=== PATIENT | female | born 1960 | race Caucasian/White ===

== ENCOUNTER → 2016-05-17 | Outpatient (CLI) | payer BC ==
--- NOTE | 2016-05-18 13:37 | MM ---
Reason for exam: screening (asymptomatic). Last mammogram was performed 1 year and 1 month ago. History: Family history of breast cancer in maternal aunt at age 50. Benign left US cyst aspiration of the left breast, February 07, 2007. Cancelled Left US Needle Biopsy of the left breast, July 11, 2006. Physical Findings: A clinical breast exam by your physician is recommended on an annual basis and results should be correlated with mammographic findings. MG Screening Mammo w CAD Bilateral CC and MLO view(s) were taken. Prior study comparison: April 15, 2015, bilateral MG screening mammo w CAD. March 22, 2014, bilateral MG screening mammo w CAD. The breast tissue is extremely dense which could obscure a lesion on mammography. No significant changes when compared with prior studies. ASSESSMENT: Benign, BI-RAD 2 RECOMMENDATION: Routine screening mammogram of both breasts in 1 year.
== END | disposition home or self-care (01) ==
LOC: RADMAMWWP 07:36
PROVIDERS: ATTEND Obstetrics & Gynecology
DX: Z12.31 Encounter for screening mammogram for malignant neoplasm of breast (principal)

== ENCOUNTER → 2017-05-26 | Outpatient (CLI) | payer OTHER ==
--- NOTE | 2017-05-27 11:35 | MM ---
Reason for exam: screening (asymptomatic). Last mammogram was performed 1 year ago. History: Family history of breast cancer in maternal aunt at age 50. Benign left US cyst aspiration of the left breast, February 07, 2007. Cancelled Left US Needle Biopsy of the left breast, July 11, 2006. Physical Findings: A clinical breast exam by your physician is recommended on an annual basis and results should be correlated with mammographic findings. MG Screening Mammo w CAD Bilateral CC and MLO view(s) were taken. Prior study comparison: May 17, 2016, bilateral MG screening mammo w CAD. April 15, 2015, bilateral MG screening mammo w CAD. The breast tissue is extremely dense which could obscure a lesion on mammography. There is chronic nodularity bilaterally. There is no dominant lesion. No significant changes when compared with prior studies. ASSESSMENT: Negative, BI-RAD 1 RECOMMENDATION: Routine screening mammogram of both breasts in 1 year.
== END | disposition home or self-care (01) ==
LOC: RADMAMWWP 08:16
PROVIDERS: ATTEND Obstetrics & Gynecology
DX: Z12.31 Encounter for screening mammogram for malignant neoplasm of breast (principal)
CPT/HCPCS: 77067

== ENCOUNTER → 2018-05-23 | Outpatient (CLI) | payer BC ==
--- NOTE | 2018-05-23 10:15 | BD ---
EXAMINATION TYPE: Axial Bone Density DATE OF EXAM: 05/23/2018 COMPARISON: NONE CLINICAL HISTORY: post menopausal female. Osteoporosis screening. Height: 5'8 1/2 Weight: 155 FRAX RISK QUESTIONS: Secondary Osteoporosis: RISK FACTORS HISTORY OF: Family History of Osteoporosis: y If Premenopausal, do you have irregular periods: y MEDICATIONS: Thyroid Medications: Which medication: Synthroid How Lon years Additional Medications: Additional History: EXAM MEASUREMENTS: Bone mineral densitometry was performed using the Tube2Tone System. Bone mineral density as measured about the Lumbar spine is: ----- L1-L4(G/cm2): 1.354 T Score Values are as follows: ----- L2: 0.7 ----- L3: 1.9 ----- L4: 2.8 ----- L1-L4: 1.4 Bone mineral density about the R hip (g/cm2): 1.020 Bone mineral density about the L hip (g/cm2): 1.019 T Score values are as follows: -----R Neck: -0.1 -----L Neck: -0.1 -----R Total: 0.9 -----L Total: 0.8 IMPRESSION: Normal (Values between +1 and -1 indicate normal bone mass). Consider repeating this study in 5 year s or sooner if there is some new clinical indication. NOTE: T-SCORE=SD OF THE YOUNG ADULT MEAN.
--- NOTE | 2018-05-24 11:51 | MM ---
Reason for exam: screening (asymptomatic). Last mammogram was performed 1 year ago. History: Family history of breast cancer in maternal aunt at age 50. Benign left US cyst aspiration of the left breast, February 07, 2007. Cancelled Left US Needle Biopsy of the left breast, July 11, 2006. Physical Findings: A clinical breast exam by your physician is recommended on an annual basis and results should be correlated with mammographic findings. MG Screening Mammo w CAD Bilateral CC and MLO view(s) were taken. Prior study comparison: May 26, 2017, bilateral MG screening mammo w CAD. May 17, 2016, bilateral MG screening mammo w CAD. The breast tissue is extremely dense which could obscure a lesion on mammography. There is no discrete abnormality. ASSESSMENT: Negative, BI-RAD 1 RECOMMENDATION: Routine screening mammogram of both breasts in 1 year.
== END | disposition home or self-care (01) ==
LOC: RADMAMWWP 07:02
PROVIDERS: ATTEND Obstetrics & Gynecology
DX: Z12.31 Encounter for screening mammogram for malignant neoplasm of breast (principal); Z13.820 Encounter for screening for osteoporosis; N95.1 Menopausal and female climacteric states
CPT/HCPCS: 77067; 77080

== ENCOUNTER → 2018-07-24 | Outpatient (CLI) | payer BC ==
--- NOTE | 2018-07-24 09:49 | MR ---
EXAMINATION TYPE: MR knee LT wo con DATE OF EXAM: 07/24/2018 COMPARISON: Outside radiographs dated 07/18/2018 HISTORY: Left knee pain TECHNIQUE: Multiplanar, multisequence imaging of the left knee is performed without IV contrast. FINDINGS: MEDIAL MENISCUS: The medial meniscus appears unremarkable in signal and morphology. Meniscal root mirella ears intact. LATERAL MENISCUS: There is abnormal signal and morphology of the anterior horn of the medial meniscus at the insertion of the transverse ligament. Posterior horn and meniscal body appear intact. CRUCIATE LIGAMENTS: The anterior and posterior cruciate ligaments are intact however there is diffuse increased signal of the anterior cruciate ligament relating to a mid grade sprain. COLLATERAL LIGAMENTS: The medial collateral ligament and lateral collateral ligament complex are inta ct EXTENSOR MECHANISM: Visualized quadriceps and patellar tendons are intact. There is some increased si gnal in the insertional fibers of the quadriceps tendon. EFFUSION: No significant suprapatellar joint effusion. POPLITEAL CYST: No sizable popliteal cyst. TRICOMPARTMENT SPACES: There are small tricompartmental marginal osteophytes present. Mild patellofem oral compartment joint space narrowing is seen. CARTILAGE: There is partial thickness cartilaginous defect of the lateral femoral condyle just superi or to the abnormal anterior meniscal signal. This defect measures only 4 mm. Slight chondral thinning of the medial compartment with heterogeneity is seen without focal defect. Within the patellofemoral compartment there is apical cartilaginous thinning and partial-thickness cartilaginous loss of the m edial facet measuring 1.1 cm. Trochlear cartilage is also slightly heterogeneous. BONE MARROW SIGNAL: No focal abnormal marrow signal is appreciated. OTHER: Minimal prepatellar and infrapatellar subcutaneous edema. IMPRESSION: 1. Abnormal signal of the anterior horn of the lateral meniscus at the insertion of the transverse li gament contiguous with the cranial articular surface concerning for a small oblique tear. Additionall y superficial to this there is a partial thickness cartilaginous defect of the lateral femoral condyl e measures 4 mm. 2. Diffuse increased signal of the anterior cruciate ligament without tear relating to mid grade spra in. 3. Increased signal within the insertional fibers of the quadriceps tendon relating to mild tendinosi s. 4. [id number] tricompartmental arthrosis and chondrosis with additional high-grade partial thic kness cartilaginous loss of nearly the entirety of the medial patellar facet.
== END | disposition home or self-care (01) ==
LOC: RADMRIMAIN 07:37
PROVIDERS: ATTEND Orthopaedic Surgery
DX: M17.12 Unilateral primary osteoarthritis, left knee (principal); M94.8X8 Other specified disorders of cartilage, other site; R93.6 Abnormal findings on diagnostic imaging of limbs

== ENCOUNTER → 2018-12-12 | Outpatient (CLI) | payer BC ==
[2018-12-12 08:40] LABS: Basophils % (A) 0 %; Eosinophils # (A) 0.2 k/uL (0-0.7); Eosinophils % (A) 4 %; HCT 42.2 % (34.0-46.0); HGB 13.9 gm/dL (11.4-16.0); Lymphocytes # (A) 1.2 k/uL (1.0-4.8); Lymphocytes % (A) 24 %; MCH 33.9 pg (25.0-35.0); MCHC 32.9 g/dL (31.0-37.0); MCV 103.2 fL (80.0-100.0); Macrocytosis Slight; Mean Platelet Volume 6.2; Monocytes # (A) 0.4 k/uL (0-1.0); Monocytes % (A) 9 %; Neutrophils # (A) 2.9 k/uL (1.3-7.7); Neutrophils % (A) 60 %; Platelet Count 224 k/uL (150-450); RBC 4.09 m/uL (3.80-5.40); RDW 11.8 % (11.5-15.5); WBC 4.8 k/uL (3.8-10.6)
[2018-12-12 09:09] LABS: Potassium 4.2 mmol/L (3.5-5.1)
== END | disposition home or self-care (01) ==
LOC: LABPAT 07:17
PROVIDERS: ATTEND Orthopaedic Surgery
DX: Z01.812 Encounter for preprocedural laboratory examination (principal); Z01.818 Encounter for other preprocedural examination; M23.92 Unspecified internal derangement of left knee
CPT/HCPCS: 36415; 80051; 85025; 93005

== ENCOUNTER → 2018-12-20 | Day surgery (SDC) | payer BC ==
[2018-12-18 11:32] VITALS: BMI 23.6
--- NOTE | 2018-12-19 13:49 | HP ---
HISTORY AND PHYSICAL DATE OF SURGERY: 12/20/2018 Zayra Saunders is a 58-year-old patient seen with progressive left knee pain. We discussed options for treatment, she elected to proceed with left knee arthroscopy. Consent was obtained. PAST MEDICAL HISTORY: Hypothyroidism. PAST SURGICAL HISTORY: Tubal ligation. DAILY MEDICATIONS: Synthroid. ALLERGIES: AMOXICILLIN. SOCIAL HISTORY: She denies current tobacco use. PHYSICAL EVALUATION OF THE LEFT KNEE: Range of motion is -2 to 130 degrees. Tenderness along the medial lateral joint lines. Positive lateral Malini's. Ligaments stable. Hip rotation without pain. Distal neurovascular exam is intact. LEFT KNEE RADIOGRAPHS: Revealed moderate osteoarthritic changes. Left knee MRI revealed lateral meniscal tear. IMPRESSION: 1. Internal derangement left knee with lateral meniscal tear. 2. Hypothyroidism. PLAN: Left knee arthroscopy with partial meniscectomy and debridement. MMODL / IJN: [id number] /
[~2018-12-20] MED LIST: BUPIVACAINE (PF) 0.25% 30 ML VIAL INTRAARTIC ONE; DEXAMETHASONE SOD PHOSPHATE 10 MG/ML 1 ML VIAL IV ONE; HYDROmorphone 0.5 MG/0.5 ML SYRINGE IVP PRN; LACTATED RINGERS 1,000 ML IV SCH; LIDOCAINE 1% 20 ML VIAL (10MG/ML) FOR IV START INTRADERMA PRN; MIDAZOLAM 2 MG/2 ML VIAL IV PRN; ONDANSETRON 4 MG/2 ML VIAL IVP ONE; SCOPOLAMINE 1.5MG/72HR PATCH TRANSDERM ONE
--- NOTE | 2018-12-20 11:48 | P.OP ---
Date of Procedure: 12/20/18 Preoperative Diagnosis: Internal derangement left knee Postoperative Diagnosis: 1. Tear medial meniscus left knee 2. Grade 2/3 chondromalacia medial femoral condyle left knee 3. Grade 3 chondromalacia patella left knee 4. Reactive synovitis medial, lateral and suprapatellar compartments left knee Procedure(s) Performed: 1. Arthroscopic partial medial meniscectomy left knee 2. Arthroscopic chondroplasty medial femoral condyle left knee 3. Arthroscopic chondroplasty patella left knee 4. Arthroscopic partial synovectomy medial, lateral and suprapatellar compartments left knee Anesthesia: ROCCOA, local Surgeon: Brayan Alvares Estimated Blood Loss (ml): 5 Pathology: none sent Condition: stable Disposition: PACU Indications for Procedure: 58-year-old patient seen with progressive left knee pain. After treatment options were discussed, she elected to proceed with arthroscopy. Operative Findings: See description of procedure Description of Procedure: Patient was taken to the operative suite. Patient underwent a general anesthetic by the department of anesthesia. Patient was given preoperative antibiotics. The left lower extremity was placed in a well-padded arthroscopic leg cavazos. The left leg was prepped and draped in the normal sterile orthopedic fashion. A lateral parapatellar incision was made. Trochar was inserted. Arthroscopy was initiated. Suprapatellar pouch revealed diffuse thick reactive synovitis. The patellofemoral joint appeared to articulate congruently. There was grade 3 chondromalacia of the patella with some osteochondral tears present. The scope was guided into the medial gutter. No loose bodies or plica were identified. The scope was then guided into the medial compartment. A medial parapatellar incision was made. Trocar inserted followed by probe. There was a small radial tear posterior medial meniscus. There was area of grade 2/3 chondromalacia medial femoral condyle with some osteochondral tears present. There was thick reactive synovitis anteriorly. I performed a partial medial meniscectomy down to stable tissue. I performed a chondroplasty of the medial femoral condyle down to stable tissue. I performed a partial synovectomy decompressing the thick reactive synovitis. The residual meniscus was probed and found to be stable. The residual osteochondral surface was stable. There was good decompression of the synovitis. Scope and probe were then guided into the intercondylar notch. Cruciates were identified, probed and found to be stable. The scope and probe were then guided into lateral compartment. The lateral meniscus was probed and found to be stable. There was some reactive synovitis anteriorly. There was no chondromalacia present. I introduced a motorized shaver and performed a partial synovectomy decompressing reactive synovitis. The shaver was removed. There was good decompression of the synovitis. The scope was in guided back into the suprapatellar compartment. I introduced a motorized shaver into the super compartment. I debrided some piecemeal fragments of meniscus I encountered. I performed a chondroplasty of the patella followed by partial synovectomy decompressing reactive synovitis. The shaver was removed. His good decompression of the synovitis. I took one more look on the entire knee, no residual debris. Instruments were now removed from the joint. The joint was infiltrated with .25% Marcaine. Steri-Strips were applied to the portal sites. Sterile dressings were applied. The patient was placed into a TIN hose. No tourniquet was utilized. The patient was awakened, transferred to a bed and taken to recovery stable satisfactory condition.
[2018-12-20 11:55] VITALS: TEMP 97
[2018-12-20 12:23] VITALS: RESP 18
[2018-12-20 12:51] VITALS: BP 113/73; PULSE 62
== END | disposition home or self-care (01) ==
LOC: OR 09:50
PROVIDERS: ATTEND Orthopaedic Surgery
DX: S83.242A Other tear of medial meniscus, current injury, left knee, initial encounter (principal); M65.862 Other synovitis and tenosynovitis, left lower leg; M22.42 Chondromalacia patellae, left knee; E03.9 Hypothyroidism, unspecified; Z88.0 Allergy status to penicillin; Z79.890 Hormone replacement therapy; Z98.51 Tubal ligation status; X58.XXXA Exposure to other specified factors, initial encounter
CPT/HCPCS: 81025; 29881; 29876; J1100; J2405; J0690

== ENCOUNTER → 2019-09-20 | Outpatient (CLI) | payer BC ==
--- NOTE | 2019-09-21 09:54 | MM ---
Reason for exam: screening (asymptomatic). Last mammogram was performed 1 year and 4 months ago. History: Family history of breast cancer in maternal aunt at age 50. Benign left US cyst aspiration of the left breast, February 07, 2007. Cancelled Left US Needle Biopsy of the left breast, July 11, 2006. Physical Findings: A clinical breast exam by your physician is recommended on an annual basis and results should be correlated with mammographic findings. MG Screening Mammo w CAD Bilateral CC and MLO view(s) were taken. Prior study comparison: May 23, 2018, bilateral MG screening mammo w CAD. May 26, 2017, bilateral MG screening mammo w CAD. The breast tissue is heterogeneously dense. This may lower the sensitivity of mammography. There is no discrete abnormality. No significant changes when compared with prior studies. ASSESSMENT: Negative, BI-RAD 1 RECOMMENDATION: Routine screening mammogram of both breasts in 1 year.
== END | disposition home or self-care (01) ==
LOC: RADMAMWWP 07:36
PROVIDERS: ATTEND Obstetrics & Gynecology
DX: Z12.31 Encounter for screening mammogram for malignant neoplasm of breast (principal); Z80.3 Family history of malignant neoplasm of breast
CPT/HCPCS: 77067

== ENCOUNTER → 2020-09-10 | Outpatient (CLI) | payer BC | END | disposition home or self-care (01) | DX: Z12.31 Encounter for screening mammogram for malignant neoplasm of breast (principal) | CPT/HCPCS: 77067 ==

== ENCOUNTER → 2021-08-05 | Outpatient (CLI) | payer BC ==
--- NOTE | 2021-08-06 09:18 | MM ---
Reason for Exam: Screening (asymptomatic). Last screening mammogram was performed 11 month(s) ago. Patient History: Menarche at age 14. First Full-Term at age 29. Postmenopausal. 02/07/2007, Benign Cyst Aspiration on the left side. 07/11/2006, Cancelled Left US Needle Biopsy on the left side. Maternal aunt had breast cancer, age 50. Risk Values: Ketty 5 year model risk: 1.5%. NCI Lifetime model risk: 8.3%. Prior Study Comparison: 05/23/2018 Bilateral Screening Mammogram, [facility]. 09/20/2019 Bilateral Screening Mammogram, [facility]. 09/10/2020 Bilateral Screening Mammogram, [facility]. Tissue Density: The breast tissue is extremely dense which could obscure a lesion on mammography. Findings: Analyzed By CAD. There is no suspicious group of microcalcifications or new suspicious mass in either breast. Overall Assessment: Negative, BI-RAD 1 Management: Screening Mammogram of both breasts in 1 year. Some advise bilateral breast ultrasound surveillance in patients with background dense tissue. Electronically signed and approved by: Abel Andrade M.D.
== END | disposition home or self-care (01) ==
LOC: RADMAMWWP 07:12
PROVIDERS: ATTEND Obstetrics & Gynecology
DX: Z12.31 Encounter for screening mammogram for malignant neoplasm of breast (principal); Z80.3 Family history of malignant neoplasm of breast
CPT/HCPCS: 77067

== ENCOUNTER → 2022-08-12 | Outpatient (CLI) | payer BC ==
--- NOTE | 2022-08-13 18:09 | MM ---
Reason for Exam: Screening (asymptomatic). Last screening mammogram was performed 12 month(s) ago. Patient History: Menarche at age 14. First Full-Term at age 29. Postmenopausal. 02/07/2007, Benign Cyst Aspiration on the left side. 07/11/2006, Cancelled Left US Needle Biopsy on the left side. Maternal aunt had breast cancer, age 50. Risk Values: Ketty 5 year model risk: 1.6%. NCI Lifetime model risk: 8.1%. Prior Study Comparison: 09/20/2019 Bilateral Screening Mammogram, [facility]. 09/10/2020 Bilateral Screening Mammogram, [facility]. 08/05/2021 Bilateral MG screening mammo w CAD, [facility]. Tissue Density: The breast tissue is heterogeneously dense. This may lower the sensitivity of mammography. Findings: Analyzed By CAD. Areas of bilateral asymmetric densities remain unchanged when comparing against various prior studies. There is no suspicious group of microcalcifications or new suspicious mass in either breast. Overall Assessment: Benign, BI-RAD 2 Management: Screening Mammogram of both breasts in 1 year. . Patient should continue monthly self-breast exams. A clinical breast exam by your physician is recommended on an annual basis. This exam should not preclude additional follow-up of suspicious palpable abnormalities. Note on Ketty scores and lifetime risk: 1. A Ketty score greater than 3% is considered moderate risk. If this is the case, consider specialist referral to assess eligibility for a risk reducing agent. 2. If overall lifetime risk for the development of breast cancer is 20% or higher, the patient may qualify for future screening with alternating mammogram and breast MRI. Electronically signed and approved by: Gabby Adan M.D. Radiologist
== END | disposition home or self-care (01) ==
LOC: RADMAMWWP 07:17
PROVIDERS: ATTEND Obstetrics & Gynecology
DX: Z12.31 Encounter for screening mammogram for malignant neoplasm of breast (principal); Z80.3 Family history of malignant neoplasm of breast; Z78.0 Asymptomatic menopausal state
CPT/HCPCS: 77067

== ENCOUNTER 2023-02-22 09:50 | Day surgery (SDC) | payer BC ==
[~2023-02-22 09:50] MED LIST changes: -BUPIVACAINE (PF) 0.25% 30 ML VIAL INTRAARTIC ONE; -DEXAMETHASONE SOD PHOSPHATE 10 MG/ML 1 ML VIAL IV ONE; -HYDROmorphone 0.5 MG/0.5 ML SYRINGE IVP PRN; +LIDOCAINE 1% (10MG/ML) FOR IV START INTRADERMA PRN; -LIDOCAINE 1% 20 ML VIAL (10MG/ML) FOR IV START INTRADERMA PRN; -MIDAZOLAM 2 MG/2 ML VIAL IV PRN; -ONDANSETRON 4 MG/2 ML VIAL IVP ONE; -SCOPOLAMINE 1.5MG/72HR PATCH TRANSDERM ONE
[2023-02-22 10:24] VITALS: TEMP 98.4
[2023-02-22] MEDS ORDERED: PROPOFOL 10 MG/ML 20 ML VIAL IV ONE (10:47)
[2023-02-22] MEDS ORDERED: LIDOCAINE 1% INJ 10MG/ML (20 ML MDV) ONE (10:47)
--- NOTE | 2023-02-22 11:19 | P.PCN ---
Date of Procedure: 02/22/23 Procedure(s) Performed: BRIEF HISTORY: Patient is a 62-year-old pleasant white female scheduled for an elective colonoscopy as a part of screening for colon cancer. Her last colonoscopy was 10 years ago. PROCEDURE PERFORMED: Colonoscopy. PREOPERATIVE DIAGNOSIS: Scheduled for colon cancer. IV sedation per Anesthesia. PROCEDURE: After informed consent was obtained, the patient, was brought into the endoscopy unit. IV sedation was administered by Anesthesia under continuous monitoring. Digital rectal examination was normal. Initially the Olympus CF-160 flexible video colonoscope was then inserted in the rectum, gradually advanced into the cecum without any difficulty. Careful examination was performed as the scope was gradually being withdrawn. Ileocecal valve and the appendiceal orifice were visualized and appeared normal. Prep was excellent. Mucosa of the cecum, ascending colon, transverse colon, descending colon, sigmoid colon, and rectum appeared normal. Retroflexion was performed in the rectum and no lesions were seen. The patient tolerated the procedure well. IMPRESSION: Normal-appearing colon from rectum to cecum with no evidence of colorectal neoplasia . RECOMMENDATIONS: Findings of this examination were discussed with the patient as well as a family. She was advised to have a repeat screening colonoscopy in 10 years..
[2023-02-22 12:01] VITALS: BP 104/59; PULSE 70; RESP 16
== END 2023-02-22 11:56 | disposition home or self-care (01) ==
LOC: ORWHC2ENDO 09:50
PROVIDERS: ATTEND Internal Medicine Gastroenterology
DX: Z12.11 Encounter for screening for malignant neoplasm of colon (principal); E03.9 Hypothyroidism, unspecified; E78.5 Hyperlipidemia, unspecified; Z88.0 Allergy status to penicillin; Z79.899 Other long term (current) drug therapy; Z79.890 Hormone replacement therapy
CPT/HCPCS: 45378; J2001; J2704

== ENCOUNTER → 2023-11-11 | Outpatient (CLI) | payer BC ==
--- NOTE | 2023-11-11 11:19 | CA ---
Transthoracic Echo Report Name: Zayra Saunders Age: 63 Gender: F : 1960 Exam Date: 11/11/2023 08:31 Exam Location: [place] [facility] Ht (in): 68 Wt (lb): 160 Ordering Physician: Salvador Fontaine MD Attending/Referring Phys: Eboni Palomo [facility] Project Assistant Chaya Le RDCS Procedure CPT: Indications: R55 SYNCOPE COLLAPSE Z12.31 BR CANCER SCREEN Cardiac Hx: Technical Quality: Fair Contrast 1: Total Dose (mL): Contrast 2: Total Dose (mL): MEASUREMENTS (Male / Female) Normal Values 2D ECHO LV Diastolic Diameter PLAX 4.5 cm 4.2 - 5.9 / 3.9 - 5.3 cm LV Systolic Diameter PLAX 3.1 cm IVS Diastolic Thickness 0.7 cm 0.6 - 1.0 / 0.6 - 0.9 cm LVPW Diastolic Thickness 0.9 cm 0.6 - 1.0 / 0.6 - 0.9 cm LV Relative Wall Thickness 0.4 LVOT Diameter 2.0 cm LV Diastolic Volume MOD BP 90.0 cm??? 67 - 155 / 56 - 104 cm??? LV Systolic Volume MOD BP 33.0 cm??? 22 - 58 / 19 - 49 cm??? LV Ejection Fraction MOD BP 63.3 % >= 55 % LV Cardiac Index MOD BP 1916.7 cm???/min???m??? LV Diastolic Volume MOD 4C 82.6 cm??? LV Systolic Volume MOD 4C 33.0 cm??? LV Ejection Fraction MOD 4C 60.0 % LV Cardiac Index MOD 4C 1667.6 cm???/min???m??? LV Diastolic Length 4C 7.7 cm LV Systolic Length 4C 6.5 cm LV Diastolic Volume MOD 2C 90.2 cm??? LV Systolic Volume MOD 2C 32.6 cm??? LV Ejection Fraction MOD 2C 63.9 % LV Cardiac Index MOD 2C 1939.5 cm???/min???m??? LV Diastolic Length 2C 8.4 cm LV Systolic Length 2C 6.6 cm LA Volume 42.2 cm??? 18 - 58 / 22 - 52 cm??? LA Volume Index 22.5 cm???/m??? 16 - 28 cm???/m??? Ascending Aorta Diameter 3.2 cm DOPPLER AV Peak Velocity 119.6 cm/s AV Peak Gradient 5.7 mmHg AV Mean Velocity 87.0 cm/s AV Mean Gradient 3.3 mmHg AV Velocity Time Integral 29.7 cm LVOT Peak Velocity 110.9 cm/s LVOT Peak Gradient 4.9 mmHg LVOT Velocity Time Integral 24.5 cm LVOT Stroke Volume 80.6 cm??? LVOT Stroke Volume Index 43.4 ml/m??? LVOT Cardiac Index 2711.4 cm???/min???m??? AV Area Cont Eq vti 2.7 cm??? AV Area Cont Eq pk 3.1 cm??? MV Area PHT 3.9 cm??? Mitral E Point Velocity 61.0 cm/s Mitral A Point Velocity 43.7 cm/s Mitral E to A Ratio 1.4 MV Deceleration Time 195.7 ms TR Peak Velocity 229.9 cm/s TR Peak Gradient 21.1 mmHg Right Atrial Pressure 5.0 mmHg Pulmonary Artery Systolic Pressu 26.1 mmHg Right Ventricular Systolic Press 26.1 mmHg PV Peak Velocity 81.8 cm/s PV Peak Gradient 2.7 mmHg FINDINGS Left Ventricle Left ventricular ejection fraction is estimated at 60 %. Left ventricular cavity size normal. Left ventricular wall thickness normal. No obvious regional wall motion abnormalities. Right Ventricle Normal right ventricular size and function. Right ventricular systolic pressure within normal limits. Right Atrium Normal right atrial size. Left Atrium Normal left atrial size. Mitral Valve Structurally normal mitral valve. No evidence for mitral valve prolapse. No mitral stenosis. Trace mitral regurgitation. Aortic Valve Trileaflet aortic valve. No aortic valve stenosis or regurgitation. Tricuspid Valve Structurally normal tricuspid valve. No tricuspid stenosis. Mild tricuspid regurgitation. Pulmonic Valve Structurally normal pulmonic valve. No pulmonic stenosis. Trace pulmonic regurgitation. Pericardium No pericardial effusion. Aorta Normal size aortic root and proximal ascending aorta. CONCLUSIONS Normal LV size and systolic function. Mild mitral and tricuspid regurgitation. No pericardial effusion. No pulmonary hypertension Previewed by: Dr. Samaria Sow MD (Electronically Signed) Final Date: 11 November 2023 11:18
--- NOTE | 2023-11-11 11:45 | US ---
EXAMINATION TYPE: US carotid duplex BILAT DATE OF EXAM: 11/11/2023 COMPARISON: NONE CLINICAL INDICATION: Female, 63 years old with history of R55 SYNCOPE COLLAPSE Z12.31 BR CANCER SCREE N; TECHNIQUE: Carotid duplex ultrasound examination. Indirect Doppler criteria was utilized. FINDINGS: EXAM MEASUREMENTS: RIGHT: Peak Systolic Velocity (PSV) cm/sec ----- Right CCA: 85.1 ----- Right ICA: 80.9 ----- Right ECA: 103.0 ICA/CCA ratio: 1.0 RIGHT: End Diastole cm/sec ----- Right CCA: 24.7 ----- Right ICA: 29.8 ----- Right ECA: 14.9 LEFT: Peak Systolic Velocity (PSV) cm/sec ----- Left CCA: 89.5 ----- Left ICA: 103.0 ----- Left ECA: 74.4 ICA/CCA ratio: 1.2 LEFT: End Diastole cm/sec ----- Left CCA: 27.5 ----- Left ICA: 39.0 ----- Left ECA: 11.0 VERTEBRALS (direction of flow): Right Vertebral: Antegrade Left Vertebral: Antegrade Rhythm: Normal HONEY LIQUEFIER NOTES: No elevated velocities. Wall thickening seen. Plaque in right bulb. IMPRESSION: 1. No hemodynamically significant stenosis in the carotid arteries in the neck. 2. Mild plaque formation in the carotid bulbs bilaterally. Criteria for Assigning % of Stenosis / Diameter reduction (Estimation based on the indirect measurements of the internal carotid artery velocities (ICA PSV). 1. Normal (no stenosis)=ICA PSV < 125 cm/s: ratio < 2.0: ICA EDV<40 cm/s. 2. Less than 50% stenosis=ICA PSV < 125 cm/s: ratio < 2.0: ICA EDV<40 cm/s. 3. 50 to 69% stenosis=ICA PSV of 125 to 230 cm/s: ration 2.0 ? 4.0: ICA EDV 40-100 cm/s. 4. Greater than 70% stenosis to near occlusion= ICA PSV > 230 cm/s: ratio > 4.0: ICA EDV > 100 cm/s. 5. Near occlusion= ICA PSV velocities may be low or undetectable: variable ratio and ICA EDV. 6. Total occlusion=unable to detect flow.
--- NOTE | 2023-11-13 12:44 | MM ---
Reason for Exam: Screening (asymptomatic). Last mammogram was performed 1 year(s) and 3 month(s) ago. Patient History: Menarche at age 14. First Full-Term at age 29. Postmenopausal. 02/07/2007, Benign Cyst Aspiration on the left side. 07/11/2006, Cancelled Left US Needle Biopsy on the left side. Maternal aunt had breast cancer, age 50. Risk Values: Ketty 5 year model risk: 1.6%. NCI Lifetime model risk: 7.9%. Prior Study Comparison: 09/10/2020 Bilateral Screening Mammogram, [facility]. 08/05/2021 Bilateral MG screening mammo w CAD, [facility]. 08/12/2022 Bilateral MG screening mammo w CAD, [facility]. Tissue Density: The breasts are heterogeneously dense, which may obscure small masses. Findings: Analyzed By CAD. Right breast: There is no suspicious group of microcalcifications or new suspicious mass. Left breast: There is no suspicious group of microcalcifications or new suspicious mass. Overall Assessment: Negative, BI-RAD 1 Management: Screening Mammogram of both breasts in [address] [facility] will attempt to contact patient to return for supplemental views and ultrasound if indicated. Patient should continue monthly self-breast exams. A clinical breast exam by your physician is recommended on an annual basis. This exam should not preclude additional follow-up of suspicious palpable abnormalities. Note on Ketty scores and lifetime risk: 1. A Ketty score greater than 3% is considered moderate risk. If this is the case, consider specialist referral to assess eligibility for a risk reducing agent. 2. If overall lifetime risk for the development of breast cancer is 20% or higher, the patient may qualify for future screening with alternating mammogram and breast MRI. Electronically signed and approved by: Fortino Gates DO
== END | disposition home or self-care (01) ==
LOC: RADMAMWWP 07:37
PROVIDERS: ATTEND Family Medicine
DX: Z12.31 Encounter for screening mammogram for malignant neoplasm of breast (principal); R92.333 Mammographic heterogeneous density, bilateral breasts; Z78.0 Asymptomatic menopausal state; Z80.3 Family history of malignant neoplasm of breast
CPT/HCPCS: 77063; 77067; 93306; 93880